=== PATIENT | female | born 1945 | race Caucasian/White ===

== ENCOUNTER 2017-10-28 07:07 | Inpatient (IN) ==
[2017-10-28] MEDS ORDERED: Dexamethasone Inj 20 MG/5 ML Vial IV.PUSH ONE (08:20)
[2017-10-28] MEDS ORDERED: Dexamethasone PF Inj 10 MG/ML Vial ONE (08:25)
[2017-10-28] MEDS ORDERED: ceFAZolin 2 GM Premix Inj 2 GM/100 ML BAG IV.SIG ONE (08:25)
[2017-10-28] MEDS ORDERED: Sodium Chlor 0.9% Inj 250 ML ONE ×2 (08:27→08:33)
[2017-10-28] MEDS ORDERED: Sodium Chlor 0.9% Inj 73.07 ML, Ropivacaine 0.5% PF Inj 24.63 ML, Ketorolac Inj 30 MG, ... P-ARTICULR SCH ×5 (08:30)
[2017-10-28] MEDS ORDERED: Metoprolol Tartrate 25 MG Tablet PO SCH (08:30)
[2017-10-28] MEDS ORDERED: Chlorhexidine Gluconate 2% 1 Pack (2 Cloths) TOPICAL SCH (08:30)
[2017-10-28] MEDS ORDERED: Chlorhexidine 4% Topical 120 APPLIC/120 ML Bottle TOPICAL SCH (08:30)
[2017-10-28] MEDS ORDERED: SODIUM CHLOR 0.9% IV.SIG SCH ×2 (09:00→13:00)
[2017-10-28] MEDS ORDERED: Vancomycin Inj 1,000 MG in Sodium Chlor 0.9% Inj 250 ML IV.SIG SCH (09:00)
[2017-10-28] MEDS ORDERED: TRANEXAMIC ACID IV.SIG SCH ×2 (09:00→13:00)
[2017-10-28] MEDS ORDERED: Sodium Chlor 0.9% Inj 500 ML IV.SIG SCH (09:00)
[2017-10-28] MEDS ORDERED: ceFAZolin Inj 2,000 MG in Sodium Chlor 0.9% Inj 100 ML IV.SIG SCH (09:00)
--- NOTE | 2017-10-28 09:09 | P.DCO ---
- Physical Therapy Physical Therapy: Gait training, Transfer training, bed to chair Knee: Total knee Left Lower Extremity Weight Bearing: Weight bearing as tolerated Left Lower Extremity Range of Motion: Active ROM - Nursing Nursing: Sukhi jean Dressing changes: Do not change dressing Additional instructions: First dressing change in the office - Certification Need for Home Health services: I have seen patient Tiffany Xiong on 10/28/17. My clinical findings support the need for the requested home health care services because: Need for Home Health Services: Limited ability to care for self, High risk of falls Homebound Certification: I certify that my clinical findings support that this patient is homebound because: Homebound Certification: Post-op weakness, Unsteady gait/balance
[2017-10-28] MEDS ORDERED: Zolpidem Tartrate 5 MG Tablet PO PRN (11:50)
[2017-10-28] MEDS ORDERED: Aluminum/Magnesium/Simethacone Susp 30 ML UDC PO PRN (11:50)
[2017-10-28] MEDS ORDERED: Bisacodyl 10 MG Supp RECTAL PRN (11:50)
[2017-10-28] MEDS ORDERED: Morphine Sulfate Inj 2 MG/ML Vial IV.PUSH PRN (11:50)
--- NOTE | 2017-10-28 11:53 | P.OP ---
- Preoperative Diagnosis (1) Osteoarthritis of left knee - Postoperative Diagnosis (1) Osteoarthritis of left knee Date of procedure: 10/28/17 Procedure: Left total knee arthroplasty Surgeon: Henry Ritchie MD Quality Compliance Manager: DULCE MARIA Weber The surgical procedure was assisted by my Advanced Registered Nurse Practitioner. My TRUST ACCOUNTS SUPERVISOR presence was necessary throughout this case for the manipulation and positioning of the surgical extremity. My TRUST ACCOUNTS SUPERVISOR was assisting me throughout the duration of this procedure. The skill set of an Advance Registered Nurse Practitioner was medically necessary to complete this procedure. During the surgical case, the pv design and installation technician was working at the back table and the Advance Registered Nurse Practitioner was directly assisting me. Operation and Findings: IMPLANTS: DePuy Attune: Patella: size 35. Femur, posterior stabilized size 6. Tibia, rotating platform size 5. Tibial insert, rotating platform, posterior stabilized size 5 mm thickness. ESTIMATED BLOOD LOSS: 125 cc TOURNIQUET TIME: 34 minutes at 250 mmHg pressure. JUSTIFICATION FOR PROCEDURE: The patient has end-stage osteoarthritis to the knee. There is an attached conservative measures pathway form in the chart that describes the nonoperative measures that were undertaken prior to consideration of surgical management. The patient understood the risks and benefits of surgical management. See my office notes for further details PROCEDURE: The patient was brought back to the operative theatre. Adequate anesthesia was obtained. The patient received intravenous vancomycin and Ancef. The lower extremity was prepped and draped in the usual sterile fashion.The leg was exsanguinated, the tourniquet was raised. A standard anterior incision was performed followed by medial parapatellar arthrotomy was performed. End-stage arthritis was identified. Osteotomy of the patella was performed. We drilled holes for the patella. We trialed the patella component. We placed an intramedullary guide into the distal femur. We ultimately resected 13 mm off of the distal femur in 5 degrees of valgus. The remnants of the ACL and PCL were resected. Osteotomy of the proximal tibia was performed, resecting 5 mm off of the medial side. This was done with 3 degrees of posterior slope using an extramedullary guide. The distal end of the guide was placed in the mid aspect of the ankle. The femur was sized, and four chamfer cuts were completed in 3 of external rotation. We then cut the central box in the distal femur to replace the PCL. We resected the remnants of the menisci and removed osteophytes off of the femur and tibia. We then trialed the knee. We punched the tibia for the keel, and then used standard technique to cement in components. Excess cement was removed. We trialed the knee again and the final polyethylene thickness was chosen to provide extension to 0 degrees, and flexion of 140 degrees to gravity. The ligaments were appropriately balanced. Lateral release was necessary to obtain excellent patellofemoral tracking. The tourniquet was released and adequate hemostasis was obtained. An intra- articular injection of a ropivacaine cocktail was injected. The posterior knee was inspected for excess cement, which was removed. The final polyethylene was put into position after thorough irrigation. We then closed deep fascia with a #2 Stratafix followed by skin with 2-0 Vicryl followed by Dermabond dressing. Postop plan is to weight-bear as tolerated. DVT prophylaxis will be performed with SCDs, SLOANE bowers, early mobilization, and Lovenox followed by aspirin.
[2017-10-28] MEDS ORDERED: Esmolol Bolus Inj 100 MG/10 ML Vial IV.PUSH ONE (12:00)
[2017-10-28] MEDS ORDERED: Lidocaine PF 1% Inj 5 ML Syringe INFILTRATN ONE (12:00)
[2017-10-28] MEDS ORDERED: Neostigmine Inj 5 MG/5 ML Syringe IV.PUSH ONE (12:00)
[2017-10-28] MEDS ORDERED: Glycopyrrolate Inj 1 MG/5 ML Syringe IV.PUSH ONE (12:00)
[2017-10-28] MEDS ORDERED: Post-op Orders (for Pharmacy) OTHER STA (12:13)
[2017-10-28] MEDS ORDERED: fentaNYL Citrate Inj 100 MCG/2 ML Ampul ONE (12:18)
[2017-10-28] MEDS ORDERED: *Meperidine Inj 25 MG/ML Vial PERIprocedural Use ONLY ONE (12:29)
[2017-10-28] MEDS ORDERED: *morphine SULFATE 4 MG/ML PERIprocedure ONLY ONE (12:32)
[2017-10-28] MEDS: Sod Chloride 0.9% Inj 1,000 ML IV.CONT SCH (13:00)
--- NOTE | 2017-10-28 13:27 | XR ---
EXAM DATE: 10/28/2017 1:23 PM EDT AGE/SEX: 72 years / Female INDICATIONS: Post-op left knee surgery. CLINICAL DATA: This is the patient's initial encounter. Patient reports that signs and symptoms have been present for 1 day and indicates a pain score of 2/10. MEDICAL/SURGICAL HISTORY: None. None. COMPARISON: No prior exams available for comparison. FINDINGS: Left total knee arthroplasty. All all 3 components are appropriately positioned without fracture. CONCLUSION: Appropriate postoperative appearance of the left knee status post total arthroplasty. Electronically signed by: Song Magdaleno MD 10/28/2017 1:26 PM EDT
[2017-10-28] MEDS: Senna/Docusate Sodium 8.6/50 MG Tablet PO SCH (22:24)
[2017-10-28] MEDS: Multivitamin/Minerals Therapeutic Tablet PO SCH (22:25)
[2017-10-29] MEDS: Sod Chloride 0.9% Inj 1,000 ML IV.CONT SCH (03:54)
[2017-10-29 05:12] LABS: Hematocrit 30.3 % (35.0-46.0); Hemoglobin 10.4 gm/dL (11.6-15.3)
[2017-10-29] MEDS ORDERED: Levothyroxine 112 MCG Tablet PO SCH (06:00)
--- NOTE | 2017-10-29 07:20 | P.PNOP ---
Subjective Interval history: The patient is resting comfortably in bed in no acute distress. The patient reports minimal pain to the left lower extremity. The patient reports being ambulatory without difficulty. Physical Exam Vital signs: Vital Signs 10/28/17 08:05 10/28/17 08:07 10/28/17 12:15 Temperature 98.5 F 97.7 F Pulse Rate 70 85 Respiratory Rate 20 16 Blood Pressure 156/87 H 152/69 H Pulse Oximetry 100 99 99 10/28/17 12:30 10/28/17 12:45 10/28/17 13:00 Temperature 97.7 F 97.7 F 97.7 F Pulse Rate 80 79 71 Respiratory Rate 16 16 16 Blood Pressure 153/83 H 129/57 L 116/60 Pulse Oximetry 97 99 98 10/28/17 13:01 10/28/17 13:15 10/28/17 13:30 Temperature 97.7 F 97.7 F 97.7 F Pulse Rate 86 76 73 Respiratory Rate 16 16 16 Blood Pressure 158/74 H 124/60 122/57 L Pulse Oximetry 99 97 96 10/28/17 14:00 10/28/17 15:48 10/28/17 15:52 Temperature 97.7 F Pulse Rate 75 72 71 Respiratory Rate 16 16 Blood Pressure 122/59 L 131/87 Pulse Oximetry 97 97 10/28/17 16:00 10/28/17 20:00 10/29/17 00:00 Temperature 98.3 F 98.5 F 98.2 F Pulse Rate 65 78 67 Respiratory Rate 17 18 19 Blood Pressure 116/64 123/61 104/53 L Pulse Oximetry 98 94 L 93 L 10/29/17 04:00 Temperature 98.5 F Pulse Rate 63 Respiratory Rate 16 Blood Pressure 111/53 L Pulse Oximetry 95 Intake & Output 10/28/17 10/29/17 10/29/17 18:59 06:59 18:59 Intake Total 2504 / 2504 2200 / 2200 Output Total 125 / 125 Balance 2379 / 2379 2200 / 2200 Weight 73.6 kg Intake: IV 664 / 664 2199 / 2200 NS Inj 1,000 ML @ 80 mls/hr IV. 1999 CONT .[id number] [facility] Rx#:[id number] Cyklokapron Inj 736 MG In NS 214 / 214 Inj 100 ML @ 200 mls/hr IV.SIG ONCE [facility] Rx#:[id number] Vancomycin Inj 1,000 MG In NS 250 / 250 Inj 250 ML @ 250 mls/hr IV.SIG WATER QUALITY CONTROL ENGINEER [facility] Rx#:[id number] Ancef 2 GM Premix Inj 2 gm In 100 / 100 100 ml @ 0 mls/hr IV.SIG .[facility] Rx#:[id number] Ancef Inj 1,000 MG In NS Inj 100 / 100 200 / 200 100 ML @ 200 mls/hr IV.SIG Q6H [facility] Rx#:[id number] Oral 240 / 240 Anesthesia Amount 1600 / 1600 Output: Estimated Blood Loss 125 / 125 Other: # Voids 3 Weight On Admission 73.6 kg Narrative: The patient's dressing is clean, dry, and intact. EHL/TA/G are intact. 2+ pedal pulse. The patient's calf is soft and nontender. Sensation is intact to light touch distally. Results - Labs CBC & Chem 7: 10/29/17 04:42 Laboratory Results - last 24 hr 10/29/17 04:42 Hgb 10.4 L Hct 30.3 L - Imaging Impressions Knee X-Ray 10/28/17 11:50 CONCLUSION: Appropriate postoperative appearance of the left knee status post total arthroplasty. - Procedures Left total knee arthroplasty Assessment and Plan - Problem List (1) Status post total knee replacement, left Code(s): Z96.652 - Presence of left artificial knee joint Status: Acute (2) Localized primary osteoarthritis of lower leg Code(s): M17.10 - Unilateral primary osteoarthritis, unspecified knee Status: Acute - Assessment and Plan POD #1: Left total knee arthroplasty 1. Weightbearing as tolerated on left lower extremity. 2. Lovenox followed by aspirin for DVT prophylaxis. 3. Ice as needed for swelling. 4. Stable per ortho for discharge to home health. 5. The patient will follow up with Dr. Ritchie and/or DULCE MARIA Ge as previously scheduled.
[2017-10-29] MEDS ORDERED: Dexamethasone Inj 20 MG/5 ML Vial IV.PUSH ONE (08:00)
[2017-10-29] MEDS: Senna/Docusate Sodium 8.6/50 MG Tablet PO SCH (08:28)
[2017-10-29] MEDS: Multivitamin/Minerals Therapeutic Tablet PO SCH (08:28)
[2017-10-29] MEDS ORDERED: Enoxaparin Inj 40 MG/0.4 ML Syringe SQ SCH (11:00)
--- NOTE | 2017-11-01 20:56 | P.DS ---
Date of admission: 10/28/17 07:07 Primary care physician: Mabel Tillman MD Attending physician on discharge: Henry Ritchie Anticipated date of discharge: 10/29/17 Brief History from admission: The patient has a history of left knee severe osteoarthritis and was admitted to the hospital for a left total knee arthroplasty. DS: Diagnosis - Discharge Diagnosis (1) Status post total knee replacement, left Status: Acute Diagnosis: Principal (2) Localized primary osteoarthritis of lower leg Status: Acute Diagnosis: Principal DS: Summary Hospital Course: The patient was admitted to the hospital for severe osteoarthritis of the left knee to have a left total knee arthroplasty. The patient's surgery went well with no complication. The patient is on a [regular] diet. The patient's DVT prophylaxis includes use of [Lovenox followed by aspirin]. The patient is weightbearing as tolerated. The patient was discharged [home with home health] and will follow up in the office with Dr. Ritchie and/or DULCE MARIA Ge as previously scheduled. - Time Spent with Patient Total time spent providing and/or coordinating discharge services: Greater than 30 minutes - Quality: VTE Deep Vein Thrombosis/Pulmonary Embolism Present on Admission: No Exam Narrative: See last progress note for physical exam Results Procedures completed during hospitalization: Left total knee arthroplasty - Impressions ITS Impressions Knee X-Ray 10/28/17 11:50 CONCLUSION: Appropriate postoperative appearance of the left knee status post total arthroplasty. Discharge Plan - Discharge Disposition Patient Disposition: W/Home Health Service - Discharge Condition Condition: Stable - Discharge Order Discharge Orders: Discharge Order (Routine); Ordered 10/28/17 Ordered By: Jet Wang - Discharge Details Anticipated Discharge Date: 10/29/17 - Physicians Team Primary Care Provider: Mabel Tillman Attending Provider: Henry Ritchie - Rxs /Orders / Referrals /Forms Prescriptions: Continue calcium carbonate-vitamin D3 [Calcium 600 + D(3)] 600 mg(1,500mg) -200 unit Tablet 1 tab PO DAILY levothyroxine [Synthroid] 137 mcg Tablet 137 mcg PO DAILY Discontinued aspirin [Aspirin Low Dose] 81 mg Tablet,Delayed Release (Dr/Ec) 81 mg PO DAILY glucosamine-chondroitin [Osteo Bi-Flex] 250-200 mg Tablet 2 tab PO TID omega 7-czo-rlh-fish oil [Fish Oil] 1,000 mg (120 mg-180 mg) Capsule 1 cap PO DAILY Ambulatory Orders / Order Sets / DME: Adjustable Commode 3-in-1 (1 each) (Routine) Location: Determined by Patient Ordered By: Jet Wang CPM - Continuous Passive Motion Machine (1 each) (Routine) Location: Determined by Patient Ordered By: Jet Wang Walker With Front Wheels (1 each) (Routine) Location: Determined by Patient Ordered By: Jet Wang Referrals: Henry Ritchie MD [Physician] - See Instructions (F/U in the office with Dr. Ritchie or DULCE MARIA Ge as previously scheduled.) [facility], [AGENCY] - See Instructions (Home health has been arranged with [facility] .) Mabel Tillman MD [Primary Care Provider] - See Instructions - Discharge Instructions Patient Printed Instructions: How to Choose and Use a Walker (GEN), SLOANE Hose ( DC), Continuous Passive Motion Machine (GEN), Knee Replacement (DC) Additional Instructions: Full weight bearing Prescriptions provided by surgeon prior to admission from office for pain med and anti-coagulation ( [place] and Lovenox) Canvas Knee splint at night - Post Discharge Care Plan Care Plan Goals: Discharge Care Plan Goals for Total Knee Replacement You have undergone knee replacement surgery. Your doctor replaced your painful joint with an artificial joint to relieve pain and restore movement. Here are some goals to help you heal well. Directions to Meet your Goals: 1. Activity & Exercises: * Take pain medicine as directed by your doctor. * Sit in chairs with arms. The arms make it easier for you to stand up or sit down. * Dont sit for more than 30 to 45 minutes at one time. * Nap if you are tired, but dont stay in bed all day. * Sleep with a pillow under your ankle, not your knee. Be sure to change the position of your leg during the night. * Wear the support stockings you were given in the hospital as directed by your surgeon. 2. Prevent Falls/Injury: The rivera to successful recovery is movement with walking and exercising your knee as directed by your doctor. * Arrange your household to keep the items you need handy. Keep everything else out of the way. * Remove items that may cause you to fall, such as throw rugs and electrical cords. * Use nonslip bath mats, grab bars, an elevated toilet seat, and a shower chair in your bathroom * Sit on a shower stool or chair when you shower to keep from falling. * Until your balance, flexibility, and strength improve, use a cane, crutches, a walker, handrails, or someone to help you. * Keep your hands free by using a backpack, sherice pack, apron, or pockets to carry things * Walk up and down stairs with support. Try one step at a time. Use the railing if possible. * Dont drive until your doctor says its OK. * Dont drive while you are taking opioid pain medicine. 3. Precautions: * Prevent infection. Any infection will need to be treated immediately. Call your doctor right away if you think you might have an infection. * Tell your dentist that you have an artificial joint and take antibiotics as prescribed before any dental work. * Tell all your healthcare providers about your artificial joint before any medical procedure. * Maintain a healthy weight. Get help to lose any extra pounds. Added body weight puts stress on the knee. * Your medications may include blood-thinning medicine to prevent blood clots or antibiotics to prevent infection-prevent any falls or cuts 4. Incision Care: * Prevent infection by washing your hands often. If an infection occurs, it will need to be treated right away. * Call your doctor right away if you think you may have an infection. Symptoms include a fever or an incision that leaks white, green, or yellow fluid. * Don't soak your incision in water until your doctor says its OK. This means no hot tubs, bathtubs, or swimming pools. * Follow your doctor's instructions for changing the dressing. * Dont rub the incision, or apply creams or lotions to it. * If you notice any redness or drainage around the bandage site, contact your surgeon's office immediately. 5. Follow-Up: Do Not miss your follow-up appointment. Keep up with all your appointments and yearly check ups When to call your doctor: Call your doctor right away if you have: Fever of 100.4F (38C) or higher, or as directed by your doctor Shaking chills Stiffness, or inability to move the knee Increased swelling in your leg Increased redness, tenderness, or swelling in or around the knee incision Drainage from the knee incision Increased knee pain Call 911: Call 911 right away if you have: Chest pain Shortness of breath Any pain or tenderness in your calf
== END 2017-10-29 14:21 | disposition home health service (06) ==
LOC: HSDI 07:07 → N06 16:07
PROVIDERS: ADMIT Orthopaedic Surgery; ATTEND Orthopaedic Surgery